=== PATIENT | male | born 1990 | race Caucasian/White ===

== ENCOUNTER 2021-01-19 12:00 | Outpatient (REF) | payer OTHER, SELFPAY ==
--- NOTE | ~2021-01-19 | XR_ITS ---
EXAMINATION: XR FOOT, LEFT CLINICAL INFORMATION: S90.32XA - Contusion of left foot, initial encounter COMPARISON: None TECHNIQUE: AP, lateral, and oblique views of the left foot. FINDINGS: There is no acute or healing fracture, dislocation, destructive process. Bony mineralization appears normal. There is no visible ankle capsular effusion. The subtalar joint is unremarkable. The retrocalcaneal recess is preserved. No focal joint narrowing or erosive change. XR/XR foot LT min 3V IMPRESSION: Normal left foot.
== END 2021-01-19 12:01 | disposition home or self-care (01) ==
LOC: HO.HMGCX 12:00
PROVIDERS: PCP Internal Medicine; Visit Provider Internal Medicine
DX: S90.32XA Contusion of left foot, initial encounter (principal)
CPT/HCPCS: 73630